=== PATIENT | female | born 1995 | race African-American/Black ===

== ENCOUNTER 2022-11-22 21:31 | Emergency (ER) | payer OTHER, SELFPAY ==
[2022-11-22] MEDS ORDERED: Ondansetron ODT 4 MG TAB ONE (22:14)
[2022-11-22 22:35] LABS: #Eosinphils 0.1 10x3/uL (0.0-0.5); #Monocytes 1.1 10x3/uL (0.0-1.1); #Neutrophils 7.8 10x3/uL (1.5-8.4); %Basophils 0.3 % (0.0-2.0); %Eosinophils 0.9 % (0.0-6.0); %Monocytes 9.1 % (0.0-10.0); %Neutrophils 66.4 % (40.0-75.0); Hemoglobin 10.2 g/dL (12.0-15.5); Mean Corpuscular HGB CONC 34.9 g/dL (32.0-36.0); Mean Corpuscular Hemoglobin 27.8 pg (27.0-33.0); Mean Corpuscular Volume 79.6 fl (81.6-98.3); Platelet Count 287 10x3/uL (150-450); RBC Distribution Width 12.4 % (11.5-14.5); Red Blood Cell (RBC) Count 3.67 10x6/uL (3.90-5.03); White Blood Cell (WBC) Count 11.7 10x3/uL (3.5-10.5)
[2022-11-22 22:38] LABS: ALT (SGPT) 19 U/L (8-55); AST (SGOT) 20 U/L (5-34); Albumin 3.4 g/dL (3.5-5.0); Alkaline Phosphatase 65 U/L (40-110); Anion Gap 13 mmol/L (10-20); BUN (Urea Nitrogen) 11 mg/dL (7.0-18.7); Bilirubin, Total 0.1 mg/dL (0.2-1.2); Calc. Creatinine Clearance 0 mL/min (70-130); Calcium 9.1 mg/dL (7.8-10.44); Carbon Dioxide 22 mmol/L (22-29); Chloride 106 mmol/L (98-107); Estimated GFR 122; Globulin 3.2 g/dL (2.4-3.5); Glucose 82 mg/dL (70-105); Potassium 3.7 mmol/L (3.5-5.1); Protein, Total 6.6 g/dL (6.0-8.3); Sodium 137 mmol/L (136-145)
[2022-11-22 23:42] LABS: Bilirubin Neg (Negative); Blood, Urine 25 (Negative); Clarity Slightly Cloudy (Clear); Glucose, Urine (Dipstick) Normal (Negative); Ketone, Urine Negative (Negative); Leukocyte 500 (Negative); Nitrite Negative (Negative); Protein, Urine (Dipstick) 15 mg/dl (Neg-Trace); Specific Gravity, Urine 1.015 (1.005-1.030); Urobilinogen Normal mg/dL (Less than 2); pH, Urine 6.5 (5.0-9.0)
[2022-11-22 23:55] LABS: Bacteria/HPF Rare-Few HPF (None Seen); Squamous Epithelial 0-3 HPF (0-3)
[2022-11-22 23:57] LABS: RBC/HPF 0-3 HPF (0-3)
[2022-11-23] MEDS ORDERED: Cephalexin 250 MG CAP ONE (00:43)
== END 2022-11-23 00:44 | disposition home or self-care (01) ==
LOC: CSHERS 21:31
DX: O99.891 Other specified diseases and conditions complicating pregnancy (principal); R06.02 Shortness of breath; R82.71 Bacteriuria; Z3A.25 25 weeks gestation of pregnancy
CPT/HCPCS: 36415; 80053; 81003; 81015; 83615; 85025; 87086; 93970; Q0162

== ENCOUNTER 2023-02-17 16:26 | Day surgery (SDC) | payer OTHER ==
[2023-02-17 16:53] VITALS: BMI 37.7
[2023-02-17 17:45] LABS: Fetal Membranes Rupture No Membranes Rupture (No Rupture)
== END 2023-02-17 18:17 | disposition home or self-care (01) ==
LOC: CSHLD/OP 16:26
PROVIDERS: ATTEND Obstetrics & Gynecology
DX: Z03.71 Encounter for suspected problem with amniotic cavity and membrane ruled out (principal); O47.1 False labor at or after 37 completed weeks of gestation; O99.343 Other mental disorders complicating pregnancy, third trimester; F32.A Depression, unspecified; Z79.899 Other long term (current) drug therapy; Z3A.38 38 weeks gestation of pregnancy
CPT/HCPCS: 84112; 99282

== ENCOUNTER 2023-02-19 17:50 | Day surgery (SDC) | payer OTHER ==
[2023-02-19 18:31] VITALS: BMI 37.7
[2023-02-19] MEDS ORDERED: hydrALAZINE 20 MG/ML VIAL SLOW IVP PRN (18:39)
[2023-02-19] MEDS ORDERED: Morphine 2 MG/ML VIAL IM SCH (19:45)
[2023-02-19] MEDS ORDERED: Morphine 4 MG/ML VIAL ONE (19:52)
== END 2023-02-19 21:55 | disposition home or self-care (01) ==
LOC: CSHLD/OP 17:50
PROVIDERS: ATTEND Obstetrics & Gynecology
DX: O47.1 False labor at or after 37 completed weeks of gestation (principal); Z3A.38 38 weeks gestation of pregnancy
CPT/HCPCS: 76819; 96372; 99283; J2270

== ENCOUNTER 2023-02-21 23:17 | Day surgery (SDC) | payer OTHER ==
[2023-02-21] MEDS ORDERED: hydrALAZINE 20 MG/ML VIAL SLOW IVP PRN (23:19)
== END 2023-02-22 01:17 | disposition home or self-care (01) ==
LOC: CSHLD/OP 23:17
PROVIDERS: ATTEND Obstetrics & Gynecology
DX: O41.93X0 Disorder of amniotic fluid and membranes, unspecified, third trimester, not applicable or unspecified (principal); Z3A.38 38 weeks gestation of pregnancy
CPT/HCPCS: 87480; 87510; 87660; 99285

== ENCOUNTER 2023-02-24 06:00 | Inpatient (IN) | payer OTHER ==
[2023-02-24] MEDS ORDERED: Methylergonovine 0.2 MG/ML VIAL IM PRN (23:28)
[2023-02-24] MEDS ORDERED: Promethazine HCl 25 MG/ML VIAL IM PRN (23:28)
[2023-02-24] MEDS ORDERED: Butorphanol Tartrate 1 MG/ML VIAL SLOW IVP PRN (23:28)
[2023-02-24] MEDS ORDERED: HYDROcodone/Acetaminophen 5/325 mg Tablet PO PRN ×2 (23:28)
[2023-02-24] MEDS ORDERED: hydrALAZINE 20 MG/ML VIAL SLOW IVP PRN (23:28)
[2023-02-24] MEDS ORDERED: Lidocaine 1% (PF) 30 ML VIAL SC PRN (23:28)
[2023-02-24] MEDS ORDERED: Tranexamic Acid 1,000 MG/10 ML VIAL IVP PRN (23:28)
[2023-02-24] MEDS ORDERED: fentaNYL 50 mcg/mL 1 mL Vial SLOW IVP PRN (23:28)
[2023-02-24] MEDS ORDERED: Diphenoxylate HCl/Atropine Tablet PO PRN ×2 (23:28)
[2023-02-24] MEDS ORDERED: Carboprost 250 MCG/ML AMP IM PRN (23:28)
[2023-02-24] MEDS ORDERED: Acetaminophen 500 MG TAB PO PRN (23:28)
[2023-02-24] MEDS ORDERED: Misoprostol 200 MCG TAB PR PRN (23:28)
[2023-02-24] MEDS ORDERED: Ondansetron PF 4 MG/2 ML Vial IVP PRN (23:28)
[2023-02-24] MEDS ORDERED: Ibuprofen 800 MG TAB PO PRN (23:28)
[2023-02-24] MEDS ORDERED: NS w/ Oxytocin 30 units 500 ML IV SCH ×3 (23:30)
[2023-02-25] MEDS: Lactated Ringer's 1,000 ML IV SCH ×3 (07:30→21:35)
[2023-02-25 07:58] VITALS: BMI 22.1
[2023-02-25] MEDS ORDERED: Bupivacaine 0.25% HCL 30 ML VIAL ONE (08:00)
[2023-02-25 09:24] LABS: Hemoglobin 10.8 g/dL (12.0-15.5); Mean Corpuscular HGB CONC 34.5 g/dL (32.0-36.0); Mean Corpuscular Hemoglobin 27.1 pg (27.0-33.0); Mean Corpuscular Volume 78.6 fl (81.6-98.3); Mean Platelet Volume 9.7 fl (7.4-10.4); Platelet Count 349 10x3/uL (150-450); RBC Distribution Width 12.4 % (11.5-14.5); Red Blood Cell (RBC) Count 3.98 10x6/uL (3.90-5.03); White Blood Cell (WBC) Count 11.3 10x3/uL (3.5-10.5)
[2023-02-25 09:54] LABS: HBSAg Index 0.19 S/CO (0-0.99); Hep B Surf Ag - L&D Non-Reactive S/CO (NonReactive); Syphilis Antibody Nonreactive (Nonreactive); Syphilis Antibody Index 0.05 S/CO (<1.00 Non-Reactive)
[2023-02-25] MEDS ORDERED: fentaNYL/Ropivacaine Epidural 100 ML ONE (10:23)
[2023-02-25] MEDS: fentaNYL 2 mcg/Ropivacaine 0.2% Epidural 100 ML CADD EPIDURAL SCH ×2 (11:50→20:45)
[2023-02-25] MEDS ORDERED: ePHEDrine Sulfate 50 MG/10 ML VIAL SLOW IVP PRN (12:03)
[2023-02-25] MEDS ORDERED: Lactated Ringer's 500 ML IV PRN (12:03)
[2023-02-25] MEDS ORDERED: Ondansetron PF 4 MG/2 ML Vial IVP PRN ×3 (12:03→23:41)
[2023-02-25] MEDS ORDERED: Naloxone HCl 0.4 mg/ml Vial IVP PRN ×4 (12:03→23:41)
[2023-02-25] MEDS ORDERED: diphenhydrAMINE 50 MG/ML VIAL IVP PRN ×3 (12:03→23:41)
[2023-02-25] MEDS ORDERED: Acetaminophen 325 MG TAB PO PRN (12:03)
[2023-02-25] MEDS ORDERED: Promethazine HCl 25 MG/ML VIAL IM PRN ×3 (12:03→23:41)
[2023-02-25] MEDS ORDERED: Moisturizing Cream (Eucerin) 113 GM JAR TOP PRN ×2 (12:03→23:41)
[2023-02-25] MEDS ORDERED: Communication Order-Pharmacy FS SCH ×3 (12:15→23:45)
[2023-02-25] MEDS: Misoprostol 100 MCG TAB VAG SCH ×5 (14:36→21:35)
[2023-02-25] MEDS ORDERED: CEFAZOLIN 2 GM VIAL ONE (22:27)
[2023-02-25] MEDS ORDERED: Midazolam HCl 2 mg/2 ml Vial ONE (22:38)
[2023-02-25] MEDS ORDERED: fentaNYL 50 mcg/mL 1 mL Vial ONE (22:39)
[2023-02-25] MEDS ORDERED: Morphine PF 10 MG/10 ML VIAL ONE (22:40)
[2023-02-25 22:53] LABS: pH (Cord, venous) 7.282 (7.250-7.350)
[2023-02-25] MEDS ORDERED: Metoclopramide HCl 10 MG/2 ML VIAL ONE (23:14)
[2023-02-25] MEDS ORDERED: Dexamethasone 4 mg/ml Vial ONE (23:14)
[2023-02-25] MEDS ORDERED: Ondansetron PF 4 MG/2 ML Vial ONE (23:14)
[2023-02-25] MEDS ORDERED: Ketorolac Tromethamine 30 MG/ML VIAL ONE (23:23)
[2023-02-25] MEDS ORDERED: Glycopyrrolate 0.2 MG/ML 5 ML SYRINGE ONE (23:25)
[2023-02-25] MEDS ORDERED: Naloxone HCl 0.4 mg/ml Vial IV PRN ×2 (23:41)
[2023-02-25] MEDS ORDERED: diphenhydrAMINE 25 MG CAP PO PRN (23:41)
[2023-02-25] MEDS ORDERED: Zolpidem Tartrate 5 MG TAB PO PRN (23:41)
[2023-02-25] MEDS ORDERED: diphenhydrAMINE 50 MG/ML VIAL IM PRN (23:41)
[2023-02-25] MEDS ORDERED: Promethazine HCl 25 MG SUPP PR PRN (23:41)
[2023-02-25] MEDS ORDERED: FENTANYL 500 MCG/10 ML VIAL 2,000 MCG in Sodium Chloride 0.9% 60 ML IV PRN (23:41)
[2023-02-25] MEDS ORDERED: Ondansetron HCl/PF 4 MG/2 ML Vial IVP PRN (23:41)
[2023-02-25] MEDS ORDERED: FENTANYL 500 MCG/10 ML VIAL 1,000 MCG in Sodium Chloride 0.9% 30 ML IV PRN (23:45)
[2023-02-25] MEDS ORDERED: Ketorolac Tromethamine 30 MG/ML VIAL IVP SCH (23:45)
[2023-02-26 00:37] LABS: Amphetamine Not Detected (NotDetected); Barbiturates Screen Not Detected (NotDetected); Benzodiazepine Screen Not Detected (NotDetected); Cocaine Metabolite Screen Not Detected (NotDetected); Methadone Not Detected (NotDetected); Methamphetamine Not Detected (NotDetected); Opiate Screen Detected (NotDetected); Oxycodone Screen Not Detected (NotDetected); Phencyclidine (PCP) Not Detected (NotDetected); THC/Cannabinoid Screen Not Detected (NotDetected); Tricyclic Screen Not Detected (NotDetected)
[2023-02-26] MEDS: Lactated Ringer's 1,000 ML IV SCH (02:21)
[2023-02-26] MEDS: Misoprostol 100 MCG TAB VAG SCH (02:22)
[2023-02-26] MEDS: CEFAZOLIN 2 GM in Sodium Chloride 0.9% 100 ML IVPB SCH ×2 (05:14→13:27)
[2023-02-26] MEDS: Ketorolac Tromethamine 30 MG/ML VIAL IVP PRN ×2 (13:27→19:36)
[2023-02-26] MEDS ORDERED: HYDROcodone/Acetaminophen 5/325 mg Tablet PO PRN (15:39)
[2023-02-26] MEDS: HYDROcodone/Acetaminophen 5/325 mg Tablet PO PRN ×2 (15:44→19:49)
[2023-02-27] MEDS: HYDROcodone/Acetaminophen 5/325 mg Tablet PO PRN ×6 (00:12→21:46)
[2023-02-27] MEDS: Simethicone Chewable 80 MG TAB PO PRN ×5 (00:12→18:44)
[2023-02-27] MEDS: Ibuprofen 800 MG TAB PO SCH ×3 (02:00→18:43)
[2023-02-27] MEDS ORDERED: Ibuprofen 800 MG TAB PO SCH (06:00)
[2023-02-27] MEDS: Prenatal Vitamin 1 TAB PO SCH (07:57)
[2023-02-27] MEDS: Docusate 100 MG CAP PO SCH (07:57)
[2023-02-27 12:43] LABS: Hemoglobin 8.8 g/dL (12.0-15.5)
[2023-02-27] MEDS: Ferrous Sulfate 325 MG TAB PO SCH (14:31)
[2023-02-27] MEDS ORDERED: Polyethylene Glycol 3350 17 GM Packet PO PRN (18:42)
[2023-02-28] MEDS: Ibuprofen 800 MG TAB PO SCH ×2 (02:26→10:14)
[2023-02-28] MEDS: HYDROcodone/Acetaminophen 5/325 mg Tablet PO PRN ×2 (03:40→07:47)
[2023-02-28] MEDS: Prenatal Vitamin 1 TAB PO SCH (07:46)
[2023-02-28] MEDS: Ferrous Sulfate 325 MG TAB PO SCH (07:46)
[2023-02-28] MEDS: Docusate 100 MG CAP PO SCH (07:46)
[2023-02-28 11:36] VITALS: BP 140/78; TEMP 98.2
== END 2023-02-28 13:00 | disposition home or self-care (01) | DRG 788 ==
LOC: CSHLD 02-25 06:23 → CSHPP 02-26 01:58
PROVIDERS: ADMIT Obstetrics & Gynecology; ATTEND Obstetrics & Gynecology
PROC: 10D00Z1 Extraction of Products of Conception, Low, Open Approach (ICD-10-PCS; principal; 2023-02-25)
PROC: 0UB90ZZ Excision of Uterus, Open Approach (ICD-10-PCS; 2023-02-25)
PROC: 4A133R1 Monitoring of Arterial Saturation, Peripheral, Percutaneous Approach (ICD-10-PCS; 2023-02-25)
DX: O34.13 Maternal care for benign tumor of corpus uteri, third trimester (principal); O76 Abnormality in fetal heart rate and rhythm complicating labor and delivery; Z3A.39 39 weeks gestation of pregnancy; Z37.0 Single live birth; D25.9 Leiomyoma of uterus, unspecified
CPT/HCPCS: 36415; 51702; 74019; 80306; 82805; 85014; 85018; 85027; 86780; 86850; 86900; 86901; 87340; 88305; 88307; J1100; J1885; J2250; J2274; J2405; J2590; J2765; J3010; J3490; J7120; S0020